=== PATIENT | male | born 1955 | race Asian ===

== ENCOUNTER 2019-10-29 14:26 | Inpatient (IN) | payer OTHER ==
[~2019-10-29] VITALS: Ht 165.1 cm; Wt 80.7 kg
[2019-10-29] VITALS (9 sets, daily range): BP systolic 90–192; BP diastolic 48–80
--- NOTE | 2019-10-29 14:32 | NUR ---
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 NO FAMILY AT BEDSIDE CURRENTLY. PT IN UPRIGHT POSITION; SKIN IS CLAMMY COLD AND MOIST PALE. PT UNABLE TO SPEAK- LABORED BREATHING SEEN. PT ANSWERS QUESTIONS APPRORIATELY WITH YES NO QUESTIONS BY NODDING/SHAKING HEAD.
--- NOTE | 2019-10-29 14:34 | NUR ---
NON REBREATHER 15L PLACED. PT O2 SAT INCR TO 81%. DR YU AT BEDSIDE AT THIS TIME. PT RESPONDS WITH NODS AND SHAKES
--- NOTE | 2019-10-29 14:40 | NUR ---
IN PROCESS OF INTUBATION. PT HAS SLIGHT AGITATION - KICKING FEET. PT PALE COOL CLAMMY. DR YU, RT EILEEN, SEVERAL RNS AT BEDSIDE.
--- NOTE | 2019-10-29 14:41 | NUR ---
SMALL IV EST 22G TO RH AT THE MOMENT
--- NOTE | 2019-10-29 14:44 | NUR ---
DR YU ATTEMPTING INTUBATION AT THIS TIME
--- NOTE | 2019-10-29 14:44 | NUR ---
ETOMIDATE 20MG IVP AND VECORIUM 10MG IVP GIVEN PRIOR TO INTUBATION
--- NOTE | 2019-10-29 14:45 | NUR ---
NO FAMILY AT BEDSIDE
--- NOTE | 2019-10-29 14:47 | NUR ---
RT AT BEDSIDE, VENT BEING SET UP. AIRWAY ASSISTED VIA BVM AT THIS TIME
--- NOTE | 2019-10-29 14:58 | NUR ---
PER DR YU, HE SPOKE WITH PT'S AND INFORMED HER OF THE NEED FOR A CENTRAL LINE PLACEMENT
--- NOTE | 2019-10-29 15:14 | NUR ---
DR YU AT BEDSIDE FOR CENTRAL LINE INSERTION.
[2019-10-29 15:22] LABS: UA SPECIFIC GRAVITY 1.015 (1.005-1.035); microscopic required? YES; urine erythrocyte 1+ (NEGATIVE)
--- NOTE | 2019-10-29 15:23 | NUR ---
DURING CENTRAL LINE INSERTION PT STARTED TO DECREASE IN 02 SATURATION TO 88% CALLED R.T. AND AT BEDSIDE FOR EVAL. CHANGING VENT SETTINGS AT THIS TIME. CENTRAL LINE INSERTION COMPLETE BUT UNABLE TO USE UNTIL XRAY CONFIRMATION.
[2019-10-29] MEDS ORDERED: CALCIUM ACETAT667 M2 PO (15:28)
[2019-10-29] MEDS ORDERED: RENA-VITE RX1 TAB PO (15:29)
[2019-10-29] MEDS ORDERED: GOOD SENSE ASPI81 M3 PO (15:29)
[2019-10-29] MEDS ORDERED: ATORVASTATIN CA40 M1 PO (15:29)
[2019-10-29] MEDS ORDERED: VITAMIN-D1000 IU PO (15:29)
--- NOTE | 2019-10-29 15:30 | NUR ---
02 SAT CURRENTLY AT 99%.
[2019-10-29 15:41] LABS: ALBUMIN 3.6 g/dL (3.4-5.0); ALKALINE PHOSPHATASE 89 U/L (46-116); ALT/SGPT 26 U/L (16-63); AST/SGOT 18 U/L (15-37); BILIRUBIN TOTAL 0.23 mg/dL (0.20-1.00); CALCIUM 8.2 mg/dL (8.5-10.1); CARBON DIOXIDE 20.5 mmol/L (21-32); CHLORIDE SERUM 97 mmol/L (98-107); CHOLESTEROL 143 mg/dL (<200); GLUCOSE SERUM 407 mg/dL (74-106); HDL CHOLESTEROL 40 mg/dL (40-60); SODIUM SERUM 132 mmol/L (136-145); TOTAL PROTEIN, SERUM 7.5 g/dL (6.4-8.2)
--- NOTE | 2019-10-29 15:48 | NUR ---
RT AT BEDSIDE FOR SUCTION. PT REMAINS ON FULL MONITORS. PROPOFOL DRIP IN PLACE. VSS
[2019-10-29 15:51] LABS: GFR1 6 mL/min
[2019-10-29 16:05] LABS: PLATELET COUNT 264 x10^3mcL (130-400); RED CELL DISTRIBUTION WIDTH 14.1 % (11.5-14.5)
[2019-10-29 16:45] LABS: BAND NEUTROPHIL 1 % (0-10); MONOCYTE 5 % (0-7); SEGMENTED NEUTROPHILS 81 % (37-75)
[2019-10-29 16:47] LABS: PLATELET MORPHOLOGY FEW LARGE PLATELET; rbc morphology (normal/abnorm) NORMAL (NORMAL)
--- NOTE | 2019-10-29 17:15 | NUR ---
FAMILY, AT BEDSIDE
--- NOTE | 2019-10-29 17:20 | NUR ---
REPORT GIVEN TO ELEN FOXING CLOSER
[2019-10-29 17:38] LABS: T3 TOTAL 0.57 ng/mL
[2019-10-29 17:45] LABS: FREE T4 0.86 ng/dL (0.76-1.46); FREE THYROXINE INDEX 1.8 ug/dL (1.4-4.5); T4(THYROXINE) 5.2 ug/dL (4.7-13.3)
--- NOTE | 2019-10-29 17:49 | NUR ---
PER PT'S , PT NORMALLY TAKES 81MG ASPIRIN EVERYDAY BUT IS ALLERGIC TO IT SO THE FIRE CONTROL TECHNICIAN B ONLY WANTS PT ON NO MORE THAN 81MG. DR YU AWARE AND SPOKE WITH FAMILY REGARDING NEED FOR ASPIRIN 300MG PO FOR INCR TROPONIN LEVELS
--- NOTE | 2019-10-29 17:49 | NUR ---
RT LEFT WITH RN EVELINE AND EMT JENNIFER TO ICU
--- NOTE | 2019-10-29 18:30 | NUR ---
CONSENT OBTAIN AT THIS TIME FROM PT'S FOR HEMODIALYSIS. HD NURSE PRESENT AT BEDSIDE TO BEGIN DIALYSIS.
--- NOTE | 2019-10-29 19:05 | NUR ---
REPORT AT THIS TIME GIVEN TO BALBIR OJEDA AND BALBIR CASTANEDA. ALL QUESTIONS ANSWERED.
[2019-10-29 19:24] LABS: CALCIUM 9.5 mg/dL (8.5-10.1)
[2019-10-29 19:25] LABS: CHOLESTEROL/HDL RATIO 3.6; MAGNESIUM 2.3 mg/dL (1.8-2.4); PHOSPHOROUS 8.8 mg/dL (2.5-4.9)
--- NOTE | 2019-10-29 19:30 | NUR ---
REC'D REPORT FROM LELE MCGREGOR TO ASSUME CARE. PT INTUBATED AND SEDATED ON PROPOFOL 5 MCG/KG/HR WITH RSS 4. ABLE TO FOLLOW COMMMANDS WHEN AWAKE. PERRLA NOTED. 7.5 ETT INTACT AND SECURED, 24 CM @ LL. NO JVD NOTED. TRACHEA MIDLINE. OGT INTACT AND SECURED. RIJ CVC INTACT, PORTS PATENT, DSG CDI. CRIMINAL PSYCHOLOGIST IN PLACE SHOWING 1ST DEGREE AVB WITH HR 95, BP 93/54 MAP 66. CHEST WALL STABLE. DENIES ANY CP AT THIS TIME. PULSES PALPABLE X4. NO EDEMA NOTED. CAP REFILL < 3 SECS. IVF NS INFUSING AT 10ML/HR. ABD ROUND AND SOFT. BOWEL SOUNDS ACTIVE. OGT IN PLACE. F/C INTACT AND DRAINING VIA GRAVITY YELLOW URINE. PT REC'ING HEMODIALYSIS AT THIS TIME. JOHN AV SHUNT IN PLACE. SKIN INTACT. GEN WEAKNESS NOTED. BUE SOFT WRIST RESTRAINTS FOR PT SAFETY. ALL NEEDS MET AT THIS TIME. WILL CONTINUE TO MONITOR.
--- NOTE | 2019-10-29 20:15 | NUR ---
CT CALLED STATED PT CANNOT BE TAKEN TO FOR CT ANGIO PULMONARY AT THIS TIME D/T PT ALREADY REC'ING HEMODIALYSIS. CT ANGIO NEEDS TO BE DONE PRIOR TO DIALYSIS. DR BERGMAN MADE AWARE. STATES WILL CALL [facility] FOR NEXT DIALYSIS.
--- NOTE | 2019-10-29 20:39 | NUR ---
REPORTED TO DR BERGMAN CRITCAL TROP LEVEL, DR BERGMAN STATES WILL CALL DR SCHMITT FOR FURTHER ORDERS THEN CALL BACK.
--- NOTE | 2019-10-29 21:00 | NUR ---
HEMODIALYSIS STOPPED AT THIS D/T LOW BP. 1L REMOVED.
--- NOTE | 2019-10-29 21:30 | NUR ---
PATIENT IS NEEDING HIGHER LEVEL OF CARE, EKG RESULT IS SHOWING INFERIOR WALL OR WITH ELEVATED TROPONINS, FIRST CALL [facility], DECLINED.
--- NOTE | 2019-10-29 21:46 | NUR ---
HEPARIN GTT INITITATED AT THIS TIME @ 1000 UNITS/HR, HEPARIN PROTOCOL FOLLOWED.
--- NOTE | 2019-10-29 22:00 | NUR ---
DR BERGMAN IN WAITING WITH AND FAMILY UPDATING ON PTS CURRENT STATUS WITH POSSIBLE TRANSFER TO HIGHER LEVEL OF CARE, ALL QUESTIONS AND CONCERNS ADDRESSED.
--- NOTE | 2019-10-29 23:00 | NUR ---
SECOND CALL PLACED TO [facility], WAS ALSO DECLINED, SAYING NOT ACUTE OK.
--- NOTE | 2019-10-29 23:40 | NUR ---
GRV= 50ML TITRATED TF TO 30ML/HR
--- NOTE | 2019-10-29 23:40 | NUR ---
TISHA TITRATED DOWN TO 15MCG/MIN AT THIS TIME BP 115/54 MAP 75. WILL CONTINUE TO MONITOR.
--- NOTE | 2019-10-29 23:44 | NUR ---
BASILIO FROM [facility] CALLED BACK AND WILL NOT BE ACCEPTING PT D/T THEIR [employer]OC AIRSPACE CONTROL OFFICER STATES PT IS NOT HAVING ACUTE STEMI AND THEIR AOC AIRSPACE CONTROL OFFICER IS MAX CAPACITY AT THIS TIME.
--- NOTE | 2019-10-30 00:15 | NUR ---
PATIENT WAS ACCEPTED AT [facility] CCU 1, UNDER THE SERVICE OF DR. PISANO, WILL ARRANGE FOR [facility].
[2019-10-30 00:23] VITALS: BP 92/52
--- NOTE | 2019-10-30 00:25 | NUR ---
[facility]SPORT WAS ARRANGED, SPOKED WITH [facility], ETA IS WITHIN AN HOUR.
[2019-10-30 00:28] VITALS: BP 90/48
[2019-10-30 00:44] LABS: BILIRUBIN TOTAL 0.38 mg/dL (0.20-1.00); CALCIUM 7.3 mg/dL (8.5-10.1); POTASSIUM SERUM 3.6 mmol/L (3.5-5.1)
[2019-10-30 00:45] LABS: ALBUMIN 2.6 g/dL (3.4-5.0); CREATININE SERUM 6.7 mg/dL (0.7-1.3); TOTAL PROTEIN, SERUM 5.5 g/dL (6.4-8.2)
--- NOTE | 2019-10-30 00:46 | NUR ---
REPORT CALLED TO CASSANDRA MADRIGAL RN AT [facility], ALL QUESTIONS AND CONCERNS ADDRESSED. CALL BACK NUMBER PROVIDED.
--- NOTE | 2019-10-30 00:51 | NUR ---
REPORTED TO DR BERGMAN PT HYPOTENSIVE AND CRITCAL TROP LEVEL 115.666, DR BERGMAN STATES WILL ORDER LEVOPHED.
--- NOTE | 2019-10-30 01:00 | NUR ---
BP 88/48 MAP 62, LEVOPHED INITIATED AT THIS TIME @ 2 MCG/MIN.
--- NOTE | 2019-10-30 01:15 | NUR ---
BP IMPROVED 109/55 MAP 67.
--- NOTE | 2019-10-30 01:15 | NUR ---
RIJ CVC DSG CHANGED AT THIS TIME USING ASEPTIC TECHINQUE.
--- NOTE | 2019-10-30 01:16 | NUR ---
[facility] AT BEDSIDE UPDATED ON TRANSFER AND ETA. ALL QUESTIONS AND CONCERNS ADDRESSED.
--- NOTE | 2019-10-30 01:37 | NUR ---
CALLED CASSANDRA MCGREGOR AT [facility], UPDATED THAT PT STARTED ON LEVOPHED AND TROP LEVEL 115.666. ALL QUESTIONS AND CONCERNS ADDRESSED.
--- NOTE | 2019-10-30 01:50 | NUR ---
PT TRANSFERRED TO [facility] VIA [facility]. PT TRANSFERRED VIA [facility] ACCOMPANIED BY CRN AND 2 CABLE TELEVISION ACCESS COORDINATOR. PT TRANSFERRED WITH FENTANYL @ 1 MCG/KG/HR WITH 50ML REMAINING, VERSED @ 2 MG/HR WITH 40 ML REMAINING, LEVOPHED @ 2 MCG/MIN WITH 240ML REMAINING, HEPARIN GTT @ 1000 UNITS/HR WITH 240ML REMAINING. ALL BELONGINGS SENT WITH PATIENT. SKIN INTACT. ETT TO VENT: AC MODE TV 500 RR 16, PEEP 5, FIO2 100%. NO ACTIVE BLEEDING TO JOHN AV SHUNT, DSG CDI. RIJ CVC INTACT, PORTS PATENT, DSG CDI. F/C IN PLACE, EMPTIED 100ML YELLOW URINE. PT TRANSFERRED TO [facility].
--- NOTE | 2019-10-30 09:43 | NUR ---
ECHOCARDIOGRAM NOT DONE-DISCHARGED
[2019-10-31 10:31] LABS: AMPHETAMINE QUAL UR NONE DETECTED (See below)
== END 2019-10-30 01:50 | disposition short-term general hospital (02) | DRG 280 ==
LOC: ED 14:26 → IC 15:49
PROVIDERS: Emergency Medicine; ADMIT Family Medicine
PROC: 0BH17EZ Insertion of Endotracheal Airway into Trachea, Via Natural or Artificial Opening (ICD-10-PCS; principal; 2019-10-29)
PROC: 5A1935Z Respiratory Ventilation, Less than 24 Consecutive Hours (ICD-10-PCS; 2019-10-29)
PROC: 05HM33Z Insertion of Infusion Device into Right Internal Jugular Vein, Percutaneous Approach (ICD-10-PCS; 2019-10-29)
DX: I13.2 Hypertensive heart and chronic kidney disease with heart failure and with stage 5 chronic kidney disease, or end stage renal disease (principal); N18.6 End stage renal disease; I21.A1 Myocardial infarction type 2; E87.1 Hypo-osmolality and hyponatremia; T82.41XA Breakdown (mechanical) of vascular dialysis catheter, initial encounter; I50.9 Heart failure, unspecified; E87.79 Other fluid overload; E87.5 Hyperkalemia; E11.65 Type 2 diabetes mellitus with hyperglycemia; Z91.15 Patient's noncompliance with renal dialysis; Z99.2 Dependence on renal dialysis; Z95.1 Presence of aortocoronary bypass graft; Z87.891 Personal history of nicotine dependence; Z79.82 Long term (current) use of aspirin; Y84.1 Kidney dialysis as the cause of abnormal reaction of the patient, or of later complication, without mention of misadventure at the time of the procedure; Y92.009 Unspecified place in unspecified non-institutional (private) residence as the place of occurrence of the external cause
CPT/HCPCS: 31500; 36600; 82962; 83880; 84439; A4628; G0378; J0696; J1644; J1815; J1940; J2250; J2270; J2543; J2704; J3010; J3370; J3490; J7030; J7050; Q0092